=== PATIENT | female | born 1975 | race American Indian/Alaskan Native ===

== ENCOUNTER 2018-06-04 09:38 | Emergency (ER) | payer MEDICAID ==
--- NOTE | 2018-06-04 10:01 | Emergency Department Report ---
ED Back Pain/Injury HPI - General Chief Complaint: Back Pain/Injury Stated Complaint: BACK PAIN Time Seen by Provider: 06/04/18 09:59 Source: patient Limitations: No Limitations - History of Present Illness Initial Comments: Patient is a 42-year-old -[place] female who comes to the ER today complaining of low back pain. She states that she saw her primary care doctor stephanie guevara told her that it was musculoskeletal. However, does continue to hurt. Patient denies any nausea vomiting diarrhea or urinary symptoms. -: days(s) Similar Symptoms Previously: Yes Place: home Radiation: none Severity: mild Quality: dull Consistency: constant Worsens With: movement Associated Symptoms: denies other symptoms - Related Data Previous Rx's Medication Instructions Recorded Last Taken Type Cyclobenzaprine [Flexeril] 10 mg PO TID PRN #10 tablet 06/04/18 Unknown Rx predniSONE [Deltasone] 20 mg PO DAILY #5 tablet 06/04/18 Unknown Rx Allergies Allergy/AdvReac Type Severity Reaction Status Date / Time No Known Allergies Allergy Verified 12/13/13 17:10 ED Review of Systems ROS: Stated complaint: BACK PAIN Other details as noted in HPI Comment: All other systems reviewed and negative Constitutional: denies: see HPI Eyes: denies: eye pain ENT: denies: ear pain Respiratory: denies: see HPI Cardiovascular: denies: dyspnea on exertion Endocrine: denies: intolerance to cold Gastrointestinal: denies: nausea Genitourinary: denies: urgency Musculoskeletal: as per HPI, back pain. denies: arthralgia Skin: denies: rash Neurological: denies: weakness Psychiatric: denies: anxiety Hematological/Lymphatic: denies: easy bleeding ED Past Medical Hx - Past Medical History Medical history: no medical history Family history: no significant family history ED Back Pain Physical Exam - Exam General: Vital signs noted. No distress. Alert and acting appropriately. Back/Abdomen: No Abdominal Tenderness, No Perithoracic Tenderness, No Perilumbar Tenderness, No Sacroiliac Tenderness, No Flank Tenderness, No Straight Leg Raise Pain Neuro: Yes Normal Sensation, Yes Normal DTR's, Yes Normal Gait, No Motor Weakness ED Course Vital Signs 06/04/18 09:45 Temperature 98.4 F Pulse Rate 95 H Respiratory 16 Rate Blood Pressure 142/80 O2 Sat by Pulse 99 Oximetry Ed Back Pain Tests - Tests Tests: Normal ED Medical Decision Making - Lab Data Result diagrams: 06/04/18 10:40 06/04/18 10:40 - Medical Decision Making PT CO LOW BACK PAIN NO TRAUMA NO URINARY SYMPTOMS SAW PCP WHO TOLD HER MUSCLE RELATED CONTINUED TO HAVE PAIN SO CAME TO ER LABS NOTED Labs 06/04/18 06/04/18 06/04/18 10:40 10:40 12:58 WBC 5.7 RBC 4.49 Hgb 10.7 Hct 34.1 MCV 76 L MCH 24 L MCHC 31 RDW 17.9 H Plt Count 237 Sodium 139 Potassium 4.5 Chloride 104.8 Carbon Dioxide 23 Anion Gap 16 BUN 7 Creatinine 0.7 Estimated GFR > 60 BUN/Creatinine Ratio 10 Glucose 97 Calcium 8.5 Urine Color Yellow Urine Turbidity Clear Urine pH 5.0 Ur Specific [place] 1.016 Urine Protein <15 mg/dl Urine Glucose (UA) Neg Urine Ketones Neg Urine Blood Neg Urine Nitrite Neg Urine Bilirubin Neg Urine Urobilinogen < 2.0 Ur Leukocyte Esterase Neg Urine WBC (Auto) 1.0 Urine RBC (Auto) 1.0 U Epithel Cells (Auto) 3.0 Urine Mucus Few Urine HCG, Qual Negative MEDICATED IN ER WITH SOME RELIEF DC HOME WITH DC POC AND REFERRAL TO ORTHO IF PERSISTS - Differential Diagnosis RO UTI/ RO PREG/ RO KIDNEY STONE Critical care attestation.: If time is entered above; I have spent that time in minutes in the direct care of this critically ill patient, excluding procedure time. ED Disposition Clinical Impression: Back pain Disposition: DC-01 TO HOME OR SELFCARE Is pt being admited?: No Does the pt Need Aspirin: No Condition: Stable Instructions: Low Back Strain (ED), Acute Low Back Pain (ED) Additional Instructions: HYDRATE WELL WITH WATER [employer] MEDS ORDERED TODAY FOLLOW UP WITH PCP OR ORTHO MD IF PERSISTS DIET AND ACTIVITY TOLERATED ALL LABS AND URINALYSIS NORMAL TODAY MOTRIN AND TYLENOL FOR MILD PAIN Prescriptions: Cyclobenzaprine [Flexeril] 10 mg PO TID PRN #10 tablet PRN Reason: Muscle Spasm predniSONE [Deltasone] 20 mg PO DAILY #5 tablet Referrals: AMARI MO [Primary Care Provider] - 3-5 Days JOVANNI MONROY MD [Staff Physician] - 3-5 Days Time of Disposition: 13:33
[2018-06-04 10:56] LABS: Hematocrit 34.1 % (30.3-42.9); Hemoglobin 10.7 gm/dl (10.1-14.3); Mean Corpuscular HGB Conc 31 % (30-34); Mean Corpuscular Volume 76 fl (79-97); Platelet Count 237 K/mm3 (140-440); Red Blood Count 4.49 M/mm3 (3.65-5.03); Red Cell Distribution Width 17.9 % (13.2-15.2)
[2018-06-04 11:11] LABS: BUN/Creatinine Ratio 10; Blood Urea Nitrogen 7 mg/dL (7-17); Calcium 8.5 mg/dL (8.4-10.2); Hemolysis Index 3
[2018-06-04] MEDS ORDERED: IBUPROFEN PO ONE (11:55)
[2018-06-04 13:21] LABS: Bilirubin,Urine NEG (Negative); Blood,Urine NEG (Negative); Color,Urine Yellow (Yellow); Mucus,Urine FEW /HPF; Protein,Urine <15 mg/dL mg/dL (Negative); Urobilinogen,Urine < 2.0 mg/dL (<2.0)
[2018-06-04 13:28] LABS: HCG Qualitative,Urine Negative (Negative)
[2018-06-04] MEDS ORDERED: FLEXERIL PO ONE (13:31)
[2018-06-04] MEDS ORDERED: NORCO 5/325 PO ONE (13:32)
[2018-06-04 15:25] VITALS: BP 142/80
== END 2018-06-04 14:09 | disposition home or self-care (01) ==
LOC: ED 09:38
DX: M54.89 Other dorsalgia (principal)
CPT/HCPCS: 36415; 80048; 81001; 81025; 85027; 99283